=== PATIENT | male | born 1955 | race Caucasian/White ===

== ENCOUNTER 2021-02-27 17:27 | Emergency (ER) | payer BC ==
--- NOTE | 2021-02-27 18:17 | EDM.PDOC ---
ED HPI GENERAL MEDICAL PROBLEM - General Chief Complaint: Genitourinary Problem Stated Complaint: PENIS ISSUE Time Seen by Provider: 02/27/21 17:41 Source of Information: Reports: Patient History Limitations: Reports: No Limitations - History of Present Illness INITIAL COMMENTS - FREE TEXT/NARRATIVE: The patient presents with a priapism. The patient saw Dr Carvalho a urologist at [facility] in [place] today. He was given a shot of Trimix. This was given for erectile dysfunction. He developed an erection after the shot. He was supposed to stay in the office until it went away but he did not. They told him to put some ice on it but that did not help. He had this priapism for about 5 1/2 hours. He says there is some mild discomfort. He has no other symptoms. Onset: Gradual Duration: Hour(s): Severity: Moderate Improves with: Reports: None Worsens with: Reports: None Associated Symptoms: Reports: No Other Symptoms Penis Pain Score (Numeric/FACES): 5 - Related Data Allergies Allergy/AdvReac Type Severity Reaction Status Date / Time No Known Allergies Allergy Verified 02/27/21 17:45 Home Meds: Home Meds Pantoprazole Sodium [Protonix] 40 mg PO DAILY 02/27/21 [History] Simvastatin 20 mg PO DAILY 02/27/21 [History] Past Medical History Cardiovascular History: Reports: High Cholesterol Gastrointestinal History: Reports: GERD, Other (See Below) Other Gastrointestinal History: stomach ulcers Genitourinary History: Reports: Other (See Below) Other Genitourinary History: erectile dysfunction Endocrine/Metabolic History: Reports: Obesity/BMI 30+ Oncologic (Cancer) History: Reports: Prostate - Past Surgical History GI Surgical History: Reports: Other (See Below) Other GI Surgeries/Procedures: "Part of my stomach was removed in the 70s due to an ulcer" Male Surgical History: Reports: Prostatectomy Social & Family History - Tobacco Use Tobacco Use Status *Q: Never Tobacco User Second Hand Smoke Exposure: No - Caffeine Use Caffeine Use: Reports: Coffee - Recreational Drug Use Recreational Drug Use: No ED ROS GENERAL - Review of Systems Review Of Systems: See Below Constitutional: Reports: No Symptoms HEENT: Reports: No Symptoms Respiratory: Reports: No Symptoms Cardiovascular: Reports: No Symptoms Endocrine: Reports: No Symptoms GI/Abdominal: Reports: No Symptoms : Reports: Other (Priapism) Musculoskeletal: Reports: No Symptoms Skin: Reports: No Symptoms ED EXAM, RENAL/ - Physical Exam Exam: See Below Exam Limited By: No Limitations General Appearance: Alert, No Apparent Distress Ears: Normal External Exam Nose: Normal Inspection Head: Atraumatic, Normocephalic Neck: Normal Inspection Respiratory/Chest: No Respiratory Distress (Male) Exam: Other (The patient has an erect penis) Course - Vital Signs Last Recorded V/S: Last Vital Signs Temp 97.7 F 02/27/21 17:38 Pulse 81 02/27/21 17:38 Resp 16 02/27/21 17:38 BP 168/94 H 02/27/21 17:38 Pulse Ox 97 02/27/21 17:38 - Re-Assessments/Exams Free Text/Narrative Re-Assessment/Exam: 02/27/21 18:34 I tried calling [facility] in [place] and they said they would call me back. I tried back a half hour later and they said they would call me back later. 02/27/21 18:45 I called for a third time and they are getting me the urologist vp integration. 02/27/21 18:46 02/27/21 18:[address] Kolb and he recommended he come down right now. I will send him by private vehicle. Departure - Departure Time of Disposition: 19:00 Disposition: Home, Self-Care 01 Condition: Good Clinical Impression: Priapism - Discharge Information *PRESCRIPTION DRUG MONITORING PROGRAM REVIEWED*: Not Applicable *COPY OF PRESCRIPTION DRUG MONITORING REPORT IN PATIENT PAOLA: Not Applicable Referrals: Chadwick Shah MD [Primary Care Provider] - Forms: ED Department Discharge Additional Instructions: Go directly to [facility]. Sepsis Event Note (ED) - Focused Exam Vital Signs: Vital Signs Temp Pulse Resp BP Pulse Ox 02/27/21 17:38 97.7 F 81 16 168/94 H 97
== END 2021-02-27 19:00 ==
LOC: JD.ED 17:27
DX: N48.30 Priapism, unspecified (principal); E78.00 Pure hypercholesterolemia, unspecified; K21.9 Gastro-esophageal reflux disease without esophagitis; E66.9 Obesity, unspecified; Z68.30 Body mass index [BMI] 30.0-30.9, adult; Z79.899 Other long term (current) drug therapy
CPT/HCPCS: 99283

== ENCOUNTER 2024-02-16 11:45 | Day surgery (SDC) | payer MEDICARE ==
[2024-02-16] MEDS: Polymyxin B/Trimethoprim 10 ML Bottle EYERT SCH (12:30)
[2024-02-16] MEDS: Brimonidine 0.2% Ophth Soln 5 ML Bottle EYERT SCH (12:43)
[2024-02-16] MEDS: Phenylephrine 2.5% Ophth Soln 2 ML Bot EYERT SCH (12:48)
[2024-02-16] MEDS: Tropicamide 1% Ophth Soln 3 ML Bottle EYERT SCH (12:52)
[2024-02-16] MEDS: Tetracaine HCl/PF 0.5% 4 ML Bottle EYEBOTH SCH (13:36)
[2024-02-16] MEDS: Lidocaine 1% PF 2 ML SDV INJECT SCH (13:56)
[2024-02-16] MEDS: Pilocarpine 4% Ophth Soln 15 ML Bot EYERT SCH (14:09)
[2024-02-16] MEDS: Cefuroxime 10 MG/ML SYRINGE EYERT SCH (14:09)
== END 2024-02-16 14:20 | disposition home or self-care (01) ==
LOC: JD.SDS 11:45
PROVIDERS: ATTEND Ophthalmology
DX: H26.9 Unspecified cataract (principal); E78.00 Pure hypercholesterolemia, unspecified; K21.9 Gastro-esophageal reflux disease without esophagitis; Z87.891 Personal history of nicotine dependence; Z79.899 Other long term (current) drug therapy
CPT/HCPCS: 66984; A9270; J0697; J3490; V2632

== ENCOUNTER 2024-04-12 12:34 | Day surgery (SDC) | payer MEDICARE ==
[2024-04-12] MEDS: Polymyxin B/Trimethoprim 10 ML Bottle EYELF SCH (13:25)
[2024-04-12] MEDS: Brimonidine 0.2% Ophth Soln 5 ML Bottle EYELF SCH (13:31)
[2024-04-12] MEDS: Phenylephrine 2.5% Ophth Soln 2 ML Bot EYELF SCH (13:36)
[2024-04-12] MEDS: Tropicamide 1% Ophth Soln 3 ML Bottle EYELF SCH (13:46)
[2024-04-12] MEDS: Tetracaine HCl/PF 0.5% 4 ML Bottle EYEBOTH SCH (14:33)
[2024-04-12] MEDS: Lidocaine 1% PF 2 ML SDV INJECT SCH (14:53)
[2024-04-12] MEDS: Cefuroxime 10 MG/ML SYRINGE EYELF SCH (15:04)
[2024-04-12] MEDS: Pilocarpine 4% Ophth Soln 15 ML Bot EYELF SCH (15:05)
== END 2024-04-12 15:15 | disposition home or self-care (01) ==
LOC: JD.SDS 12:34
PROVIDERS: ATTEND Ophthalmology
DX: H25.812 Combined forms of age-related cataract, left eye (principal); E78.2 Mixed hyperlipidemia; Z79.899 Other long term (current) drug therapy
CPT/HCPCS: 66984; J0697; A9270-GY; J3490